=== PATIENT | female | born 1945 | race Hispanic/Latino ===

== ENCOUNTER 2020-05-22 09:32 | Emergency (ER) | payer MEDICARE, OTHER ==
[~2020-05-22] VITALS: Ht 147.3 cm; Wt 73.9 kg
[~2020-05-22 09:32] MED LIST: BUSPIRONE HCL5 MG PO; LISINOPRIL-HCT1 EACH PO; LORAZEPAM1 MG PO; PANTOPRAZOLE SO40 MG PO; TYLENOL # 31 EA PO
--- NOTE | 2020-05-22 09:48 | Emergency Department Note ---
History of Present Illnes History of Present Illness Chief Complaint: General Medicine Complaints History of Present Illness This is a 75 year old female, with history of hypertension, GERD, chronic low back pain, and remote history of lymphoma, who presents with a one- week history of right buttock pain radiating to the right lower extremity. Patient denies any falls or trauma. Patient is seen by pain management, due to chronic low back pain following a back surgery approximately 8-10 years ago. She has tried Votaren gel for this current pain, without relief of her symptoms. She also takes CBD oil and Hydrocodone chronically, for her back pain, which has not been helpful in alleviating this pain. She also has some intermittent numbness and tingling of both lower extremities; however, this is chronic. She denies any bowel or bladder changes. Historian: Patient Arrival Mode: Car Onset (how long ago): week(s) (1) Location: RLE Quality: sharp, shooting, constant Radiation: Reports extremity (RLE) Severity: moderate Onset quality: sudden Duration (how long): week(s) (1) Timing of current episode: constant Progression: unchanged Chronicity: new Context: Denies recent illness Relieving factors: none Exacerbating factors: none Associated symptoms: Denies fever/chills, Denies headaches, Denies nausea/vomiting Treatments prior to arrival: other (hydrocodone and CBD oil) Risk factors: chronic LBP, obesity Past Medical/Family History Physician Review I have reviewed the patient's past medical and family history. Any updates have been documented here. Past Medical History Recent Fever: No Clinical Suspicion of Infectio: No New/Unexplained Change in Ment: No Past Medical History: Hypertension, Anxiety, GERD Other Medical History: CHRONIC SHOULDER PAIN LYMPHOMA Other Surgery: BACK LYMPH NODES REMOVED FROM R BREAST Social History Smoking Cessation: Never Smoker Alcohol Use: None Any Illegal Drug Use: No TB Exposure/Symptoms: No Physically hurt or threatened: No Family History Family history of heart diseas: No Other Any Pre-Existing Lines (PICC,: No Review of Systems Review of Systems Constitutional: Denies chills, Denies fever EENTM: Reports ear pain; Denies throat pain Cardiovascular: Denies chest pain, Denies edema, Denies palpitations Respiratory: Denies cough, Denies dyspnea Gastrointestinal: Denies nausea, Denies vomiting Genitourinary: Reports no symptoms Musculoskeletal: Reports muscle pain (right gluteus/sciatic notch); Denies back pain, Denies joint swelling, Denies neck pain Integumentary: Denies change in color, Denies rash Neurological: Denies headache, Denies numbness, Denies paresthesia, Denies tingling Psychological: Reports no symptoms Review of other systems: All other systems negative Physical Exam Related Data Allergies: Coded Allergies: No Known Allergies (Unverified , 09/25/14) Vital signs reviewed: Yes Physical Exam CONSTITUTIONAL Constitutional: Present well-developed, Present well-nourished, Present obese, Present other (ambulating with a walker); Absent distressed, Absent ill appearing HENT HENT: Present normocephalic, Present atraumatic, Present oropharynx clear/moist, Present nose normal; Absent nasal congestion, Absent rhinorrhea HENT L/R: Present left ext ear normal, Present right ext ear normal EYES Eyes: Reports PERRL, Reports conjunctivae normal NECK Neck: Present ROM normal PULMONARY Pulmonary: Present effort normal, Present breath sounds normal CARDIOVASCULAR Cardiovascular: Present regular rhythm, Present heart sounds normal, Present capillary refill normal, Present normal rate GASTROINTESTINAL GENITOURINARY Genitourinary: Present exam deferred SKIN Skin: Present warm, Present dry MUSCULOSKELETAL Musculoskeletal: Present ROM normal, Present tenderness (ttp of right sciatic notch; no lumbar vertebral point tenderness or SI joint tenderness;) NEUROLOGICAL Neurological: Present alert, Present oriented x 3, Present no gross motor or sensory deficits; Absent cranial nerve deficit PSYCHOLOGICAL Psychological: Present mood/affect normal, Present judgement normal Assessment & Plan Medical Decision Making MDM - Alternate ice, with heat, to the area of pain in the right buttock. - Take medication, as directed. - You may continue the "Votaren gel," the CBD oil and your pain medication, as needed. - Follow-up with your painter helper sign in 7-10 days, if your pain is not improving. Assessment & Plan Final Impression: (1) Sciatica of right side (2) Chronic lower back pain (3) Chronic GERD (4) Hypertension Depart Disposition: HOME, SELF-FDC Meds Active Scripts Prednisone (PREDNISONE) 50 Mg Tablet, 50 MG PO DAILY for inflammation for 7 Days, #7 TAB 0 Refills Take first thing in the morning, with food. Prov:JOANNA FLETCHER MD 05/22/20 Reported Medications Acetaminophen/Codeine* (TYLENOL # 3*) 1 Ea Tab, 1 TAB PO PRN PRN for PAIN 09/25/14 Buspirone Hcl (BUSPIRONE HCL) 5 Mg Tablet, 5 MG PO BID, #60 TAB 09/25/14 Lorazepam (LORAZEPAM) 1 Mg Tablet, 1 MG PO PRN PRN for ANXIETY, TAB 09/25/14 Pantoprazole Sodium* (PROTONIX) 40 Mg Tablet.dr, 40 MG PO DAILY, TAB 09/25/14 Lisinopril/Hydrochlorothiazide (LISINOPRIL-HCTZ 20-12.5 MG TAB) 1 Each Tablet, 1 TAB PO DAILY 09/25/14 JOANNA FLETCHER MD May 22, 2020 09:48
[2020-05-22] MEDS ORDERED: PREDNISONE 20 MG TAB PO ONE (10:30)
[2020-05-22] MEDS ORDERED: PREDNISONE50 MG PO (10:34)
== END 2020-05-22 10:44 | disposition home or self-care (01) ==
LOC: FSED 09:55
DX: M54.41 Lumbago with sciatica, right side (principal); I10 Essential (primary) hypertension; K21.9 Gastro-esophageal reflux disease without esophagitis; F41.9 Anxiety disorder, unspecified; G89.29 Other chronic pain; Z85.72 Personal history of non-Hodgkin lymphomas
CPT/HCPCS: 99283; J7512